=== PATIENT | female | born 1960 | race Caucasian/White ===

== ENCOUNTER 2016-11-25 09:26 | Emergency (ER) | payer OTHER ==
[2016-11-25 09:34] VITALS: BP 104/59; PULSE 96; RESP 16; TEMP 100.9; O2SAT 99
--- NOTE | 2016-11-25 09:47 | UCPHY ---
H & P Time Seen by Provider: 11/25/16 09:38 Patient Type: New HPI/ROS: This patient reports a 3 day history of flu-like symptoms. She explains that she developed nasal congestion, myalgias, fevers, chills, and a dry cough. She also complains of fatigue. She reports the symptoms are similar to previous influenza that she has had. She has partial relief of her symptoms from over- the-counter antipyretics. No other exacerbating or alleviating factors. ROS: HEENT: No significant sore throat or ear pain. No other complaints. Neuro: No significant headache. No focal neuro symptoms. Pulmonary: No pleuritic pain or shortness of breath. GI: No nausea vomiting or diarrhea. 7 point ROS is otherwise negative. Past Medical/Surgical History: Intermittent influenza. Otherwise healthy Smoking Status: Never smoked Physical Exam: Physical Exam Vital signs are normal. General: No acute distress HEENT: Nose: Clear discharge oropharynx no erythema or exudates or dysphonia. Ears: External canals and TMs clear bilaterally. Eyes: Pupils equal and react to light. Extraocular motions are intact. Lungs: Clear to auscultation bilaterally with occasional dry cough. No rales or rhonchi are noted on exam. No respiratory distress. Cardiac: Regular rate and rhythm with no murmur gallop or rub Skin: No rash or pallor. Neuro: Alert with no sensorimotor deficits. Constitutional: Initial Vital Signs Temperature (C) 38.3 C 11/25/16 09:32 Heart Rate 96 11/25/16 09:32 Respiratory Rate 16 11/25/16 09:32 Blood Pressure 104/59 L 11/25/16 09:32 O2 Sat (%) 99 11/25/16 09:32 O2 Delivery Mode Room Air Allergies/Adverse Reactions: No Known Allergies Allergy (Verified 11/25/16 09:30) Home Medications: Medication Instructions Recorded NK [No Known Home Meds] 11/25/16 MDM/Departure - MDM Diagnostics: Positive for influenza A Medications Given: Discontinued Medications Ibuprofen (Motrin) 600 mg PO EDNOW ONE Stop: 11/25/16 09:49 Last Admin: 11/25/16 09:56 Dose: 600 mg ED Course/Re-evaluation: I counseled the patient regarding influenza. She appears clinically well and I think will do - Depart Disposition: Home, Routine, Self-Care Clinical Impression: Influenza A Condition: Good Instructions: Influenza (ED) Additional Instructions: Diagnosis: Influenza A Plan: Plenty fluids Ibuprofen for muscle aches and fevers as needed. Tylenol in addition if needed. No work until 24 hours after your fever has resolved. Return for any significant worsening despite the treatment plan. Stand Alone Forms: Work Excuse Referrals: Delores Squires MD [Primary Care Provider] - As per Instructions - PQRS PQRS Measurement: NA
[2016-11-25] MEDS ORDERED: IBUPROFEN 200 MG TAB PO ONE (09:48)
== END 2016-11-25 10:13 | disposition home or self-care (01) ==
LOC: CED 09:26
DX: J09.X2 Influenza due to identified novel influenza A virus with other respiratory manifestations (principal)
CPT/HCPCS: 87400-PO; 99203-PO; G0463-PO

== ENCOUNTER → 2017-02-25 | Outpatient (CLI) | payer OTHER | LOC: FIMAGING 08:50 | DX: Z12.31 Encounter for screening mammogram for malignant neoplasm of breast (principal) | CPT/HCPCS: G0202 ==

== ENCOUNTER → 2018-03-31 | Outpatient (CLI) | payer OTHER | LOC: FIMAGING 07:43 | PROVIDERS: ATTEND Internal Medicine | DX: Z12.31 Encounter for screening mammogram for malignant neoplasm of breast (principal) ==